=== PATIENT | male | born 1960 | race Two or more races ===

== ENCOUNTER → 2018-12-15 11:14 | Outpatient (CLI) | payer OTHER | END | disposition home or self-care (01) | LOC: LAB 11:14 | DX: N45.3 Epididymo-orchitis (principal) ==

== ENCOUNTER → 2018-12-15 | Outpatient (CLI) | payer OTHER | END | disposition home or self-care (01) | LOC: SONOGRAMA 11:00 | DX: C61 Malignant neoplasm of prostate (principal); N45.3 Epididymo-orchitis ==